=== PATIENT | female | born 1990 | race American Indian/Alaskan Native ===

== ENCOUNTER 2016-05-28 08:35 | Emergency (ER) | payer SELFPAY ==
[2016-05-28 09:15] LABS: Basophils % (Auto) 0.2 % (0.0-1.8); Hematocrit 28.3 % (30.3-42.9); Hemoglobin 9.4 gm/dl (10.1-14.3); Mean Corpuscular HGB Conc 33 % (30-34); Mean Corpuscular Hemoglobin 30 pg (28-32); Mean Corpuscular Volume 91 fl (79-97); Platelet Count 170 K/mm3 (140-440); Red Cell Distribution Width 13.5 % (13.2-15.2)
[2016-05-28 09:22] LABS: Alanine Aminotransferase 9 units/L (7-56); Albumin 3.8 g/dL (3.9-5); Albumin/Globulin Ratio 1.5 %; Alkaline Phosphatase 37 units/L (35-129); Anion Gap 19 mmol/L; BUN/Creatinine Ratio 18.57; Bilirubin,Total 0.7 mg/dL (0.1-1.2); Blood Urea Nitrogen 13 mg/dL (7-17); Calcium 8.1 mg/dL (8.4-10.2); Carbon Dioxide 22 mmol/L (22-30); Glucose 126 mg/dL (65-100); Lipase 9 units/L (13-60); Potassium 3.7 mmol/L (3.6-5.0); Sodium 140 mmol/L (137-145); Total Protein 6.4 g/dL (6.3-8.2)
[2016-05-28 09:47] LABS: Mucus,Urine FEW /HPF
[2016-05-28 09:56] LABS: Bilirubin,Urine Negative (Negative); Blood,Urine Trace (Negative); Ketones,Urine Negative (Negative)
[2016-05-28 09:57] LABS: Leukocyte Esterase,Urine Negative (Negative); Nitrite,Urine Negative (Negative); Protein,Urine <15 mg/dL mg/dL (Negative); Urobilinogen,Urine 0.2 mg/dL (<2.0)
--- NOTE | 2016-05-28 13:41 | Emergency Department Report ---
ED General Adult HPI - General Chief complaint: Abdominal Pain Stated complaint: SOB/ABD PAIN Time Seen by Provider: 05/28/16 13:38 Source: patient Mode of arrival: Ambulatory Limitations: No Limitations - History of Present Illness Initial comments: Patient states that after intercourse last night she developed suprapubic pain. She also noted that her abdomen was a little bit distended today. She did not complain of weakness. She did not refer syncope. She denied any vaginal bleeding or any evidence of injury. She also denied discharge. She denies nausea and has not been vomiting. He states that she's never had anything like this happen before. She does not have a machine welder. -: Gradual, hour(s) Location: abdomen Radiation: non-radiation Severity scale (0 -10): 4 Quality: aching Consistency: intermittent Improves with: none Worsens with: none Associated Symptoms: denies other symptoms Treatments Prior to Arrival: none - Related Data Previous Rx's Medication Instructions Recorded Last Taken Type traMADol [Ultram] 50 mg PO Q6HR PRN #10 tablet 05/28/16 Unknown Rx Allergies Allergy/AdvReac Type Severity Reaction Status Date / Time Sulfa (Sulfonamide Allergy Hives Verified 05/28/16 08:40 Antibiotics) ED Review of Systems ROS: Stated complaint: SOB/ABD PAIN Other details as noted in HPI Constitutional: denies: chills, fever Eyes: denies: eye pain, eye discharge, vision change ENT: denies: ear pain, throat pain Respiratory: denies: cough, shortness of breath, wheezing Cardiovascular: denies: chest pain, palpitations Endocrine: no symptoms reported Gastrointestinal: abdominal pain. denies: nausea, diarrhea Genitourinary: denies: urgency, dysuria, discharge Musculoskeletal: denies: back pain, joint swelling, arthralgia Skin: denies: rash, lesions Neurological: denies: headache, weakness, paresthesias Psychiatric: denies: anxiety, depression Hematological/Lymphatic: denies: easy bleeding, easy bruising ED Past Medical Hx - Past Medical History Previous Medical History?: No - Surgical History Past Surgical History?: No - Social History Smoking Status: Never Smoker Substance Use Type: Alcohol - Medications Home Medications: Home Medications Medication Instructions Recorded Confirmed Last Taken Type traMADol [Ultram] 50 mg PO Q6HR PRN #10 tablet 05/28/16 Unknown Rx ED Physical Exam - General Limitations: No Limitations General appearance: alert, in no apparent distress - Head Head exam: Present: atraumatic, normocephalic - Eye Eye exam: Present: normal appearance - ENT ENT exam: Present: mucous membranes moist - Neck Neck exam: Present: normal inspection. Absent: tenderness, meningismus - Respiratory Respiratory exam: Present: normal lung sounds bilaterally. Absent: respiratory distress - Cardiovascular Cardiovascular Exam: Present: normal rhythm, tachycardia. Absent: systolic murmur, diastolic murmur, rubs, gallop - GI/Abdominal GI/Abdominal exam: Present: soft, distended (some abdominal distention was noted but certainly no tense ascites ), normal bowel sounds. Absent: tenderness (significant tenderness was noted), guarding, rebound, rigid - Extremities Exam Extremities exam: Present: normal inspection - Back Exam Back exam: Present: normal inspection - Neurological Exam Neurological exam: Present: alert, oriented X3, CN II-XII intact. Absent: motor sensory deficit - Psychiatric Psychiatric exam: Present: normal affect, normal mood - Skin Skin exam: Present: warm, dry, intact, normal color. Absent: rash ED Course Vital Signs 05/28/16 05/28/16 05/28/16 08:38 13:29 16:09 Temperature 98.7 F 98.3 F Pulse Rate 107 H 110 H 98 H Respiratory 18 16 16 Rate Blood Pressure 129/89 Blood Pressure 129/88 112/78 [Left] O2 Sat by Pulse 100 99 99 Oximetry - Reevaluation(s) Reevaluation #1: Found to have a left complex cyst (ovarian). Radiologist raises the specter of neoplastic disease. There was moderate ascites. X Believe the patient has a ruptured ovarian cyst. I spoke to the machine welder stone spreader operator Dr. Sihelds. She recommended serial hemoglobins. Patient's repeat hemoglobin was reported to Dr. Shields. It was 8.8. She decided that the patient would be followed as an outpatient. She agreed that she would see the patient in the office tomorrow. Patient remained hemodynamically stable. Her exam did not change. There really wasn't any tenderness. There was no change in abdominal girth. Clinically she does appear to be stable. She will be discharged for near-term follow-up. 05/28/16 18:29 ED Medical Decision Making - Lab Data Result diagrams: 05/28/16 17:08 02/05/17 08:45 Laboratory Results - last 24 hr 05/28/16 05/28/16 05/28/16 08:45 08:45 09:08 WBC 11.0 RBC 3.10 L Hgb 9.4 L Hct 28.3 L MCV 91 MCH 30 MCHC 33 RDW 13.5 Plt Count 170 Lymph % (Auto) 16.3 [place] % (Auto) 5.9 Eos % (Auto) 0.0 Baso % (Auto) 0.2 Lymph # 1.8 [place] # 0.7 Eos # 0.0 Baso # 0.0 Seg Neutrophils % 77.6 H Seg Neutrophils # 8.5 H Sodium 140 Potassium 3.7 Chloride 103.0 Carbon Dioxide 22 Anion Gap 19 BUN 13 Creatinine 0.7 Estimated GFR > 60 BUN/Creatinine Ratio 18.57 Glucose 126 H Calcium 8.1 L Total Bilirubin 0.7 AST 10 ALT 9 Alkaline Phosphatase 37 Total Protein 6.4 Albumin 3.8 L Albumin/Globulin Ratio 1.5 Lipase 9 L Urine Color Yellow Urine Turbidity Clear Urine pH 5.0 Ur Specific [place] 1.025 Urine Protein <15 mg/dl Urine Glucose (UA) Negative Urine Ketones Negative Urine Blood Trace Urine Nitrite Negative Ur Reducing Substances Not Reportable Urine Bilirubin Negative Urine Ictotest Not Reportable Urine Urobilinogen 0.2 Ur Leukocyte Esterase Negative Urine WBC (Auto) 5.0 Urine RBC (Auto) 1.0 U Epithel Cells (Auto) 2.0 Urine Mucus Few Urine HCG, Qual Negative Laboratory Results - last 24 hr 05/28/16 05/28/16 05/28/16 08:45 08:45 09:08 WBC 11.0 RBC 3.10 L Hgb 9.4 L Hct 28.3 L MCV 91 MCH 30 MCHC 33 RDW 13.5 Plt Count 170 Lymph % (Auto) 16.3 [place] % (Auto) 5.9 Eos % (Auto) 0.0 Baso % (Auto) 0.2 Lymph # 1.8 [place] # 0.7 Eos # 0.0 Baso # 0.0 Seg Neutrophils % 77.6 H Seg Neutrophils # 8.5 H PT INR APTT Sodium 140 Potassium 3.7 Chloride 103.0 Carbon Dioxide 22 Anion Gap 19 BUN 13 Creatinine 0.7 Estimated GFR > 60 BUN/Creatinine Ratio 18.57 Glucose 126 H Calcium 8.1 L Total Bilirubin 0.7 Direct Bilirubin Indirect Bilirubin AST 10 ALT 9 Alkaline Phosphatase 37 Total Protein 6.4 Albumin 3.8 L Albumin/Globulin Ratio 1.5 Lipase 9 L Urine Color Yellow Urine Turbidity Clear Urine pH 5.0 Ur Specific [place] 1.025 Urine Protein <15 mg/dl Urine Glucose (UA) Negative Urine Ketones Negative Urine Blood Trace Urine Nitrite Negative Ur Reducing Substances Not Reportable Urine Bilirubin Negative Urine Ictotest Not Reportable Urine Urobilinogen 0.2 Ur Leukocyte Esterase Negative Urine WBC (Auto) 5.0 Urine RBC (Auto) 1.0 U Epithel Cells (Auto) 2.0 Urine Mucus Few Urine HCG, Qual Negative 05/28/16 05/28/16 05/28/16 17:08 17:08 17:08 WBC 12.3 H RBC 2.90 L Hgb 8.8 L Hct 26.5 L MCV 92 MCH 31 MCHC 33 RDW 13.7 Plt Count 151 Lymph % (Auto) 20.7 [place] % (Auto) 7.8 H Eos % (Auto) 0.1 Baso % (Auto) 0.1 Lymph # 2.5 [place] # 1.0 H Eos # 0.0 Baso # 0.0 Seg Neutrophils % 71.3 H Seg Neutrophils # 8.8 H PT 15.4 H INR 1.23 H APTT 24.9 Sodium Potassium Chloride Carbon Dioxide Anion Gap BUN Creatinine Estimated GFR BUN/Creatinine Ratio Glucose Calcium Total Bilirubin 1.0 Direct Bilirubin 0.2 Indirect Bilirubin 0.8 AST 12 ALT 9 Alkaline Phosphatase 37 Total Protein 6.6 Albumin 4.0 Albumin/Globulin Ratio 1.5 Lipase Urine Color Urine Turbidity Urine pH Ur Specific [place] Urine Protein Urine Glucose (UA) Urine Ketones Urine Blood Urine Nitrite Ur Reducing Substances Urine Bilirubin Urine Ictotest Urine Urobilinogen Ur Leukocyte Esterase Urine WBC (Auto) Urine RBC (Auto) U Epithel Cells (Auto) Urine Mucus Urine HCG, Qual Critical care attestation.: If time is entered above; I have spent that time in minutes in the direct care of this critically ill patient, excluding procedure time. ED Disposition Clinical Impression: Ruptured ovarian cyst Disposition: DISCHARGED TO HOME OR SELFCARE Is pt being admited?: No Does the pt Need Aspirin: No Condition: Stable Instructions: Abdominal Pain (ED), Ovarian Cyst (ED) Additional Instructions: Return any acute change or problem. It is essential that you follow-up with Dr. Ryan Crooks at her office tomorrow. See referral information. Rx given for pain. However if you have significant pain increased distention of your abdomen weakness or dizziness he should return immediately here for reevaluation. Prescriptions: traMADol [Ultram] 50 mg PO Q6HR PRN #10 tablet PRN Reason: Pain Referrals: PRIMARY CARE, [Primary Care Provider] - 3-5 Days Sebastian Shields [Other] - 24 Hours Time of Disposition: 18:32
[2016-05-28] MEDS ORDERED: NACL 0.9% 1000 ML 1,000 ML IV ONE ×2 (13:49→16:59)
[2016-05-28] MEDS ORDERED: ZOFRAN IV ONE (13:49)
[2016-05-28] MEDS ORDERED: MORPHINE IV ONE (13:49)
[2016-05-28] MEDS ORDERED: NACL 0.9% 1000 ML 1,000 ML ONE (13:49)
[2016-05-28] MEDS ORDERED: ZOSYN/NS 3.375GM/50ML 3.375 GM/50 ML BAG IV ONE (13:49)
--- NOTE | 2016-05-28 15:14 | Ultrasound Report ---
FINAL REPORT EXAM: US PELVIC COMPLETE HISTORY: abd pain distention post intercourse COMPARISON: None available. TECHNIQUE: Several real-time grayscale and color Doppler images were obtained. Transabdominal and transvaginal exam. Duplex imaging. FINDINGS: Uterus measures 7.2 x 2.2 x 4.0 centimeters. Right ovary measures 2.9 x 1.8 x 2.5 centimeters. Left ovary measures 4.9 x 3.5 x 4.3 centimeters. Within the left ovary there is a complex cyst with multiple septations measuring 2.5 x 1.9 x 2.2 centimeters. Spectral analysis demonstrates arterial waveforms to the bilateral ovaries. Moderate amount of ascites in all 4 quadrants on transabdominal exam. IMPRESSION: Complex left ovarian cystic structure measuring 2.5 centimeters. This may reflect a complex physiologic cyst. Moderate ascites. Given the moderate amount of ascites, ovarian neoplasm cannot be excluded. Gynecological consultation suggested. No discrete uterine lesions. Right ovary is grossly unremarkable. No adnexal masses are demonstrated separate from the ovaries.
[2016-05-28 17:49] LABS: Albumin/Globulin Ratio 1.5 %; Bilirubin,Direct 0.2 mg/dL (0-0.2); Bilirubin,Indirect 0.8 mg/dL; Total Protein 6.6 g/dL (6.3-8.2)
[2016-05-28 18:06] LABS: Basophils % (Auto) 0.1 % (0.0-1.8); Eosinophils % (Auto) 0.1 % (0.0-4.3); Hematocrit 26.5 % (30.3-42.9); Hemoglobin 8.8 gm/dl (10.1-14.3); Mean Corpuscular HGB Conc 33 % (30-34); Mean Corpuscular Hemoglobin 31 pg (28-32); Mean Corpuscular Volume 92 fl (79-97); Platelet Count 151 K/mm3 (140-440); Red Cell Distribution Width 13.7 % (13.2-15.2); White Blood Count 12.3 K/mm3 (4.5-11.0)
[2016-05-28 18:16] LABS: INR 1.23 (0.87-1.13)
[2016-05-28 18:17] LABS: Partial Thromboplastin Time 24.9 Sec. (24.2-36.6)
[2016-05-28 19:08] VITALS: BP 118/76
--- NOTE | 2016-05-29 08:46 | XRay Report ---
CHEST ONE VIEW INDICATION: Hypertension. COMPARISON: None similar at this institution. FINDINGS: Portable, single, frontal chest radiograph demonstrates normal cardiomediastinal silhouette. Clear lungs. Unremarkable bones. CONCLUSION: No acute disease in the chest. Thank you for the opportunity to participate in this patient's care.
== END 2016-05-28 19:06 | disposition home or self-care (01) ==
LOC: ED 08:35
DX: N83.299 Other ovarian cyst, unspecified side (principal); Z88.2 Allergy status to sulfonamides
CPT/HCPCS: 36415; 71010; 76830; 76856; 80053; 80074; 81001; 81025; 83690; 84702; 85025; 85610; 85730; 86850; 86900; 86901; 96361; 96365; 96366; 96375; 99284; J2270; J2405; J2543; J7030

== ENCOUNTER 2016-05-30 12:52 | Emergency (ER) | payer OTHER ==
[2016-05-30 15:20] LABS: Basophils % (Auto) 0.3 % (0.0-1.8); Eosinophils % (Auto) 0.1 % (0.0-4.3); Hematocrit 24.3 % (30.3-42.9); Hemoglobin 7.9 gm/dl (10.1-14.3); Mean Corpuscular HGB Conc 33 % (30-34); Mean Corpuscular Hemoglobin 30 pg (28-32); Mean Corpuscular Volume 92 fl (79-97); Platelet Count 147 K/mm3 (140-440); Red Blood Count 2.64 M/mm3 (3.65-5.03); Red Cell Distribution Width 13.7 % (13.2-15.2); White Blood Count 7.3 K/mm3 (4.5-11.0)
--- NOTE | 2016-05-30 21:53 | Emergency Department Report ---
ED Female HPI - General Chief complaint: Vaginal Bleeding Stated complaint: FOLLOW UP VISIT/RUPTURE OVARY CYST Time Seen by Provider: 05/30/16 21:00 Source: patient Mode of arrival: Ambulatory Limitations: No Limitations - Related Data Previous Rx's Medication Instructions Recorded Last Taken Type traMADol [Ultram] 50 mg PO Q6HR PRN #10 tablet 05/28/16 Unknown Rx Allergies Allergy/AdvReac Type Severity Reaction Status Date / Time Sulfa (Sulfonamide Allergy Hives Verified 05/30/16 14:11 Antibiotics) ED Review of Systems ROS: Stated complaint: FOLLOW UP VISIT/RUPTURE OVARY CYST Other details as noted in HPI ED Past Medical Hx - Past Medical History Previous Medical History?: No - Surgical History Past Surgical History?: No - Social History Smoking Status: Never Smoker Substance Use Type: Alcohol - Medications Home Medications: Home Medications Medication Instructions Recorded Confirmed Last Taken Type traMADol [Ultram] 50 mg PO Q6HR PRN #10 tablet 05/28/16 Unknown Rx ED Physical Exam - General Limitations: No Limitations ED Course Vital Signs 05/30/16 14:00 Temperature 98.3 F Pulse Rate 99 H Respiratory 18 Rate Blood Pressure 119/76 O2 Sat by Pulse 100 Oximetry ED Medical Decision Making - Lab Data Result diagrams: 05/30/16 14:42 Critical care attestation.: If time is entered above; I have spent that time in minutes in the direct care of this critically ill patient, excluding procedure time. ED Disposition Clinical Impression: Pelvic pain, Complex cyst of left ovary Ascites Qualifiers: Ascites type: other type Qualified Code(s): R18.8 - Other ascites Anemia Qualifiers: Anemia type: unspecified type Qualified Code(s): D64.9 - Anemia, unspecified Disposition: DISCHARGED TO HOME OR SELFCARE Is pt being admited?: No Does the pt Need Aspirin: No Condition: Stable Additional Instructions: Call Dr. Allen at [phone] to arrange for appointment. He indicated he would probably see you next Sunday. His office should be calling you as well. Return if you start becoming more weak or dizzy or have significantly worsening abdominal pains. Drink plenty of fluids. Eat a protein/iron rich diet. Referrals: PRIMARY CARE, [Primary Care Provider] - 3-5 Days Forms: Work/School Release Form(ED) Time of Disposition: 21:53
[2016-05-30 23:13] VITALS: BP 134/84
[2016-05-30 23:44] LABS: Bilirubin,Urine NEG (Negative); Blood,Urine LG (Negative); Ketones,Urine NEG (Negative); Leukocyte Esterase,Urine MOD (Negative); Mucus,Urine FEW /HPF; Nitrite,Urine NEG (Negative); Protein,Urine <15 mg/dL mg/dL (Negative)
[2016-05-30 23:58] LABS: RBC,Urine > 182.0 /HPF (0.0-6.0)
== END 2016-05-30 23:10 | disposition home or self-care (01) ==
LOC: ED 12:52
DX: R18.8 Other ascites (principal); D64.9 Anemia, unspecified; N83.202 Unspecified ovarian cyst, left side; Z88.2 Allergy status to sulfonamides
CPT/HCPCS: 36415; 81001; 81025; 85025; 99283